=== PATIENT | female | born 1990 | race Native Hawaiian/Other Pacific Islander ===

== ENCOUNTER → 2016-11-17 | Outpatient (CLI) | payer OTHER ==
[~2016-11-17] VITALS: Ht 167.6 cm; Wt 72.5 kg
[2016-11-17 15:49] VITALS: BP 123/66; PULSE 77; Ht 167.6 cm; Wt 72.5 kg
== END | disposition home or self-care (01) ==
LOC: C.NEUR 15:00
PROVIDERS: ATTEND Internal Medicine Pulmonary Disease
DX: G47.11 Idiopathic hypersomnia with long sleep time (principal)

== ENCOUNTER → 2017-03-06 | Outpatient (CLI) | payer OTHER ==
--- NOTE | 2017-03-08 12:33 | MAMMOGRAPHY REPORT ---
BILATERAL DIGITAL SCREENING MAMMOGRAM TOMOSYNTHESIS WITH CAD: 03/06/2017 CLINICAL HISTORY: Routine screening. Patient has no complaints. TECHNIQUE: Breast tomosynthesis in addition to standard 2D mammography was performed. Current study was also evaluated with a Computer Aided Detection (CAD) system. COMPARISON: No prior exams were available for comparison. BREAST COMPOSITION: The tissue of both breasts is heterogeneously dense, which may obscure small mas ses. FINDINGS: There are a few benign-appearing punctate microcalcifications in the breasts. No suspiciou s mass, architectural distortion or cluster of suspicious microcalcifications is seen. IMPRESSION: ACR BI-RADS CATEGORY 1: NEGATIVE There is no mammographic evidence of malignancy. A 3 year screening mammogram is recommended. The pa tient will receive written notification of the results. Approximately 10% of breast cancers are not detected with mammography. A negative mammographic report should not delay biopsy if a clinically suggestive mass is present. Tomasa Negron M.D. ay/:03/06/2017 16:26:27 Teacher Counselor: Madeline MALDONADO(Elodia)(Cornelius), [facility] letter sent: Normal 1/2 BI-RADS Code: ACR BI-RADS Category 1: Negative
== END | disposition home or self-care (01) ==
LOC: C.MAMM 13:09
PROVIDERS: ATTEND Physician Assistant Medical
DX: Z12.31 Encounter for screening mammogram for malignant neoplasm of breast (principal)

== ENCOUNTER → 2017-04-21 | Outpatient (CLI) | payer OTHER ==
[~2017-04-21] VITALS: Ht 167.6 cm; Wt 74.3 kg
[2017-04-21 14:39] VITALS: BP 121/75; PULSE 85; Ht 167.6 cm; Wt 74.3 kg
== END | disposition home or self-care (01) ==
LOC: C.NEUR 13:49
PROVIDERS: ATTEND Internal Medicine Pulmonary Disease
DX: R53.83 Other fatigue (principal); G47.10 Hypersomnia, unspecified